=== PATIENT | female | born 1970 | race Hispanic/Latino ===

== ENCOUNTER 2022-11-22 06:04 | Day surgery (SDC) | payer OTHER ==
[2022-11-18 14:05] VITALS: BMI 31.1
[2022-11-22] MEDS ORDERED: PROPOFOL 40 ML ONE (07:04)
[2022-11-22] MEDS ORDERED: Lidocaine 1% PF 5 ML VIAL ONE (07:04)
[2022-11-22] MEDS ORDERED: PROPOFOL 20 ML ONE (08:02)
== END 2022-11-22 08:40 | disposition home or self-care (01) ==
LOC: CSHSDC 06:04
PROVIDERS: ATTEND Internal Medicine Gastroenterology
DX: Z12.11 Encounter for screening for malignant neoplasm of colon (principal); D12.3 Benign neoplasm of transverse colon; K57.30 Diverticulosis of large intestine without perforation or abscess without bleeding; K64.8 Other hemorrhoids; I10 Essential (primary) hypertension; E78.5 Hyperlipidemia, unspecified; E11.9 Type 2 diabetes mellitus without complications; F41.9 Anxiety disorder, unspecified; E54 Ascorbic acid deficiency; Z98.890 Other specified postprocedural states
CPT/HCPCS: 88305; J2704